=== PATIENT | male | born 1985 | race Caucasian/White ===

== ENCOUNTER 2019-03-14 17:34 | Emergency (ER) | payer BC, MEDICAID | END 2019-03-14 19:39 | disposition home or self-care (01) | LOC: FTE 17:34 | DX: S69.91XA Unspecified injury of right wrist, hand and finger(s), initial encounter (principal); W18.39XA Other fall on same level, initial encounter | CPT/HCPCS: 29125; 73090-RT; 73110-RT; 99283-25 ==